=== PATIENT | female | born 1980 | race American Indian/Alaskan Native ===

== ENCOUNTER 2020-01-07 15:40 | Emergency (ER) | payer SELFPAY ==
--- NOTE | 2020-01-07 16:00 | Event Note ---
ED Screening Note Date of service: 01/07/20 Time: 15:58 ED Screening Note: 39 y o femle presents with cc of a lot of calls admits HI with no plan delusional, PMH: Anxiety This initial assessment/diagnostic orders/clinical plan/treatment(s) is/are subject to change based on patients health status, clinical progression and re- assessment by fellow clinical providers in the ED. Further treatment and workup at subsequent clinical providers discretion. Patient/guardian urged not to elope from the ED as their condition may be serious if not clinically assessed and managed. Initial orders include: main side eval labs
[2020-01-07 17:02] LABS: Basophils # (Auto) 0.2 K/mm3 (0.0-0.1); Basophils % (Auto) 0.9 % (0.0-1.8); Eosinophils # (Auto) 0.3 K/mm3 (0.0-0.4); Eosinophils % (Auto) 1.5 % (0.0-4.3); Lymphocytes # (Auto) 3.4 K/mm3 (1.2-5.4); Lymphocytes % (Auto) 20.1 % (13.4-35.0); Mean Corpuscular HGB Conc 30 % (30-34); Monocytes # (Auto) 0.9 K/mm3 (0.0-0.8); Monocytes % (Auto) 5.3 % (0.0-7.3); Platelet Count 425 K/mm3 (140-440); Red Blood Count 4.78 M/mm3 (3.65-5.03); Red Cell Distribution Width 17.9 % (13.2-15.2)
[2020-01-07 17:05] LABS: Hematocrit 32.6 % (30.3-42.9); Hemoglobin 9.7 gm/dl (10.1-14.3); Mean Corpuscular Volume 68 fl (79-97)
[2020-01-07 17:10] LABS: BUN/Creatinine Ratio 12; Blood Urea Nitrogen 7 mg/dL (7-17); Calcium 9.5 mg/dL (8.4-10.2); Hemolysis Index 1
--- NOTE | 2020-01-07 20:25 | Emergency Department Report ---
HPI - General Chief Complaint: Psych Time Seen by Provider: 01/07/20 19:45 - HPI HPI: 39-year-old -Nigerien female presents to the emergency department via EMS for a mental health evaluation. The patient first tells me that she is here because of anxiety that is keeping her from getting any sleep or eating food. She says that she takes alprazolam for her anxiety. When asked how long this has been going on, the patient says "ever since they have been calling me and telling me to come here." I asked who she is referring to and the patient says "Tim Anderson" among others. She says that she sees it "on their receipts, and even sees the numbers on the side of the buses." She denies any visual or auditory hallucinations. She denies any suicidal ideations. Patient denies any psychiatric diagnosed history by saying "I have seen the things that they wrote down on the papers but those are not right." ED Review of Systems ROS: Stated complaint: EVAL Other details as noted in HPI Comment: Unobtainable due to pts medical conditions Physical Exam - Physical Exam Physical Exam: GENERAL: The patient is well-developed well-nourished. HENT: Normocephalic. Atraumatic. Patient has moist mucous membranes. EYES: Extraocular motions are intact. NECK: Supple. Trachea is midline. CHEST/LUNGS: Clear to auscultation. There is no respiratory distress noted. HEART/CARDIOVASCULAR: Regular. There is no tachycardia. ABDOMEN: Abdomen is soft, nontender. Patient has normal bowel sounds. There is no abdominal distention. SKIN: Skin is warm and dry. NEURO: The patient is awake, alert, and cooperative. The patient has no focal neurologic deficits. Normal speech. MUSCULOSKELETAL: There is no tenderness or deformity. There is no limitation range of motion. There is no evidence of acute injury. PSYCH: Patient exhibits delusions. ED Medical Decision Making - Lab Data Result diagrams: 01/07/20 16:39 01/07/20 16:39 - Medical Decision Making This patient presents to the emergency department for a mental health evaluation. At first she starts talking about having anxiety but shortly afterwards and started to exhibit some delusions and/or hallucinations. The patient thinks that there are celebrities that are calling her and telling her that she needs to come to the hospital. She thinks there is some connection between things that she is seen on billboards, the sides of buses and apparently some receipts that are related to these celebrities. The patient also was seen in triage appearing to be hallucinating. The patient denies any suicidal or homicidal ideations to me. However she was seen by the psychiatric porter luggage and did express homicidal ideations and paranoia. For all these reasons the patient has been made a 1013 and we will seek inpatient psychiatric treatment. Her labs have been mostly unremarkable including CBC, metabolic panel, UDS and blood alcohol level. The patient did have a mild leukocytosis of 17,000 but there are no signs or symptoms of infection including the patient is afebrile. Her vital signs been stable throughout her ED course thus far. I consider this patient to be medically cleared for psychiatric placement. - Differential Diagnosis Bipolar disorder, schizophrenia, schizoaffective, substance abuse Critical Care Time: No Critical care attestation.: If time is entered above; I have spent that time in minutes in the direct care of this critically ill patient, excluding procedure time. ED Disposition Clinical Impression: Acute psychosis Disposition: DC/TX-65 PSY HOSP/PSY UNIT Is pt being admited?: No Condition: Stable Time of Disposition: 22:37
[2020-01-07 20:35] LABS: Bilirubin,Urine NEG (Negative); Blood,Urine NEG (Negative); Color,Urine Yellow (Yellow); Mucus,Urine FEW /HPF; Protein,Urine <15 mg/dL mg/dL (Negative)
[2020-01-07 20:42] LABS: Amphetamine Screen,Urine PRESUMPTIVE NEGATIVE; Benzodiazepines Screen,Urine PRESUMPTIVE NEGATIVE; Cannabinoid Screen,Urine PRESUMPTIVE NEGATIVE; Cocaine Screen,Urine PRESUMPTIVE NEGATIVE; Methadone Screen,Urine PRESUMPTIVE NEGATIVE; Opiate Screen,Urine PRESUMPTIVE NEGATIVE
[2020-01-08] MEDS ORDERED: HALOPERIDOL LACTATE 5 MG/1 ML INJ ONE (13:14)
--- NOTE | 2020-01-08 13:14 | Consultation ---
History of Present Illness - Reason for Consult Consult date: 01/08/20 Reason for consult: psychiatric assessment - History of Present Psychiatric Illness Ms. Mejia is a 39-year-old -[place] female, patient was noted in her room sitting on a recliner, the patient appears irritable, she appears her age she is disheveled, poor hygiene. She maintains intermittent eye contact. When the patient was asked her name the patient gave a wrong name, when told what her right name was the patient stated, "I just changed that the other day". When asked why she was here the patient stated, some other members called in yesterday and told them that I was not treated right, crisis came I cursed them out and I came on the back of the van to the hospital". The patient reports that she has a history of anxiety and has been taking Xanax when asked the last time she took Xanax patient said she does not remember. The patient denies ever having any mental health history. The patient denies suicidal ideation, but voiced homicidal ideation with the plan to use antifreeze in anyone's cocktail and kill them. When asked why the patient stated, "people are always messing with me so why not just kill them". The patient denies visual or auditory hallucinations the patient appear apprehensive the patient denies any form of depressive symptoms. She does report that she is eating and sleeping well. The patient is noted with disorganized thought processes and decreased attention span very hyperverbal and irritable PAST PSYCHIATRIC HISTORY: Diagnoses: anxiety Suicide attempts or Self-harm behavior:denies Prior psychiatric hospitalizations: yes Substance Abuse history: denies Previous psychiatric medications tried: xanax Outpatient treatment: can't remember PAST MEDICAL HISTORY: Family Psychiatric History family members SOCIAL HISTORY Marital Status: single Living Arrangements: self Employment Status: unemployed Access to guns/weapons: denies Education: college History of Abuse: yes Legal History: yes ROS: Constitutional: Negative for weight loss ENT: Negative for stridor Respiratory: Negative for cough or hemoptysis All other systems reviewed and are negative MENTAL STATUS General Appearance and Behavior: age appropriate, good eye contact, cooperative with questioning and polite Cooperation: at times Psychomotor Behavior: agitated Mood: "high" Affect and affective range: expansive Thought Process: tangential Thought Content: HI Speech: hyperverbal Intellectual Functioning Average Suicidal Ideation: Denies SI Homicidal Ideation: yes to use anti-freeze to kill people Impulse Control: intact Insight and Judgment: poor Memory: forgetful Attention: Normal Orientation: alert and orientedx 3 RECOMMENDATIONS MEDICATIONS: Start Haldol 5 mg IM every 6 hours as needed agitation Start Ativan 2 mg IM every 4 hours as needed agitation Start olanzapine 2.5 mg daily-psychosis Start trazodone 50 mg nightly for sleep buspar 7.5 mg twice daily anxiety Risks, benefits and alternatives of medications discussed with the patient, questions answered and consent obtained from patient. PSYCHOTHERAPY: Supportive psychotherapy provided DELIRIUM PRECAUTIONS: Please re-orient patient frequently, keep lights on during the day, and minimize benzodiazepines and opiates as these medications could worsen patient's confusion. 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 Will follow until transfer to appropriate facility LEGAL STATUS: 1013 FOLLOW-UP: Will follow Medications and Allergies Allergies Allergy/AdvReac Type Severity Reaction Status Date / Time No Known Allergies Allergy Unverified 01/07/20 16:03 Active Meds: Active Medications Haloperidol Lactate (Haldol) 5 mg IM Q6H PRN PRN Reason: Agitation Lorazepam (Ativan) 2 mg IV Q4H PRN PRN Reason: Agitation Mental Status Exam - Vital signs Last Vital Signs Temp 98.0 F 01/08/20 07:57 Pulse 84 01/08/20 07:57 Resp 18 01/08/20 07:57 BP 147/78 01/08/20 07:57 Pulse Ox 100 01/08/20 07:57 Results Result Diagrams: 01/07/20 16:39 01/07/20 16:39 Abnormal lab results 01/07/20 01/07/20 01/07/20 Range/Units 16:39 16:39 16:39 WBC (4.5-11.0) K/mm3 Hgb (10.1-14.3) gm/dl MCV (79-97) fl MCH (28-32) pg RDW (13.2-15.2) % Good[place] # (0.0-0.8) K/mm3 Baso # (0.0-0.1) K/mm3 Seg Neutrophils % (40.0-70.0) % Seg Neutrophils # (1.8-7.7) K/mm3 Sodium 135 L (137-145) mmol/L Carbon Dioxide 20 L (22-30) mmol/L Creatinine 0.6 L (0.7-1.2) mg/dL Glucose 111 H (65-100) mg/dL Salicylates < 0.3 L (2.8-20.0) mg/dL Acetaminophen < 5.0 L (10.0-30.0) ug/mL 01/07/20 Range/Units 16:39 WBC 17.1 H (4.5-11.0) K/mm3 Hgb 9.7 L (10.1-14.3) gm/dl MCV 68 L (79-97) fl MCH 20 L (28-32) pg RDW 17.9 H (13.2-15.2) % Gooding # 0.9 H (0.0-0.8) K/mm3 Baso # 0.2 H (0.0-0.1) K/mm3 Seg Neutrophils % 72.2 H (40.0-70.0) % Seg Neutrophils # 12.3 H (1.8-7.7) K/mm3 Sodium (137-145) mmol/L Carbon Dioxide (22-30) mmol/L Creatinine (0.7-1.2) mg/dL Glucose (65-100) mg/dL Salicylates (2.8-20.0) mg/dL Acetaminophen (10.0-30.0) ug/mL All other labs normal.
[2020-01-08] MEDS: LORazepam 2 MG/ML VIAL IV PRN (13:49)
[2020-01-08] MEDS: HALOPERIDOL LACTATE 5 MG/1 ML INJ IM PRN (13:50)
[2020-01-08 19:30] LABS: Basophils # (Auto) 0.2 K/mm3 (0.0-0.1); Basophils % (Auto) 1.3 % (0.0-1.8); Eosinophils # (Auto) 0.2 K/mm3 (0.0-0.4); Eosinophils % (Auto) 1.6 % (0.0-4.3); Lymphocytes # (Auto) 3.7 K/mm3 (1.2-5.4); Lymphocytes % (Auto) 26.2 % (13.4-35.0); Mean Corpuscular HGB Conc 29 % (30-34); Monocytes # (Auto) 0.7 K/mm3 (0.0-0.8); Monocytes % (Auto) 4.8 % (0.0-7.3); Platelet Count 374 K/mm3 (140-440); Red Blood Count 4.64 M/mm3 (3.65-5.03); Red Cell Distribution Width 18.5 % (13.2-15.2)
[2020-01-08 19:31] LABS: Hematocrit 31.7 % (30.3-42.9); Hemoglobin 9.3 gm/dl (10.1-14.3); Mean Corpuscular Volume 69 fl (79-97)
[2020-01-08] MEDS: traZODone 50 MG TAB PO SCH (22:22)
[2020-01-08] MEDS: busPIRone 5 MG TAB PO SCH (22:22)
[2020-01-09] MEDS: busPIRone 5 MG TAB PO SCH ×2 (11:29→22:30)
--- NOTE | 2020-01-09 15:53 | Progress Note ---
Subjective - Reason for Consult Consult date: 01/09/20 Reason for consult: Psychiatric assessment - Chief Complaint Chief complaint: Ms. Mejia is seen in her room alert oriented x2 she is able to make her needs known she is dressed appropriately for the occasion she appears her age, she maintains eye contact. 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 The patient denies suicidal ideation but reports that she has a little bit of homicidal ideation for someone in [place] she states, "I need to take care of that business in [place]". The patient denies visual or auditory hallucinations. She reports eating and sleeping well she denies any form of depressive symptoms she states, "they are just oppressing me here". She reports her mood as fine. ROS: Constitutional: Negative for weight loss ENT: Negative for stridor Respiratory: Negative for cough or hemoptysis All other systems reviewed and are negative MENTAL STATUS General Appearance and Behavior: age appropriate, good eye contact, cooperative with questioning and polite Cooperation: calm Psychomotor Behavior: Mood: "fine" Affect and affective range: Labile Thought Process: tangential Thought Content: Speech: HI Intellectual Functioning Average Suicidal Ideation: Denies SI Homicidal Ideation: yes Impulse Control: intact Insight and Judgment: poor Memory: forgetful Attention: Normal Orientation: alert and orientedx 3 RECOMMENDATIONS MEDICATIONS: Continue medication on chart Risks, benefits and alternatives of medications discussed with the patient, questions answered and consent obtained from patient. PSYCHOTHERAPY: Supportive psychotherapy provided DELIRIUM PRECAUTIONS: Please re-orient patient frequently, keep lights on during the day, and minimize benzodiazepines and opiates as these medications could worsen patient's confusion. 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 Will follow until transfer to appropriate facility LEGAL STATUS: 1013 FOLLOW-UP: Will follow Mental Status Exam - Vital signs Last Vital Signs Temp 97.7 F 01/09/20 14:41 Pulse 82 01/09/20 14:41 Resp 20 01/09/20 14:41 BP 146/83 03/12/20 14:41 Pulse Ox 98 01/09/20 14:41
[2020-01-09] MEDS: traZODone 50 MG TAB PO SCH (22:30)
[2020-01-10] MEDS: HALOPERIDOL LACTATE 5 MG/1 ML INJ IM PRN (09:12)
[2020-01-10] MEDS: LORazepam 2 MG/ML VIAL IV PRN (09:13)
[2020-01-10] MEDS: busPIRone 5 MG TAB PO SCH ×2 (11:07→21:44)
[2020-01-10] MEDS: traZODone 50 MG TAB PO SCH (21:44)
[2020-01-11 03:43] LABS: Mean Corpuscular HGB Conc 30 % (30-34); Platelet Count 386 K/mm3 (140-440); Red Blood Count 4.48 M/mm3 (3.65-5.03); Red Cell Distribution Width 18.4 % (13.2-15.2)
[2020-01-11 03:47] LABS: Hemoglobin 9.1 gm/dl (10.1-14.3); Mean Corpuscular Volume 69 fl (79-97)
[2020-01-11] MEDS: busPIRone 5 MG TAB PO SCH ×2 (10:12→22:32)
[2020-01-11] MEDS: LORazepam 2 MG/ML VIAL IV PRN (11:45)
[2020-01-11] MEDS: HALOPERIDOL LACTATE 5 MG/1 ML INJ IM PRN (11:45)
--- NOTE | 2020-01-11 12:56 | Progress Note ---
Subjective Date of service: 01/11/20 Principal diagnosis: Psychiatric assessment Subjective Comment: Ms. Mejia is seen in her room alert oriented x2 she is able to make her needs known she is dressed appropriately for the occasion she appears her age, she maintains eye contact.when asked about suicidal ideation the patient stated, "my time has appear I have to go now I have to search I need to go now". When asked about homicidal ideation the patient stated no I do not want to hurt anyone". The patient denies visual or auditory hallucinations, but was seen talking and laughing to her self. When asked about depression, the patient stated, "I am just been oppressed here" the patient then stated, "did you see Rachel she is here you need to send her home she has been here all morning". When asked who was Rachel the patient stated, who acts as if you did not see her". The patient stated I need a lie detector test and when I pass I will nette you guys. ROS: Constitutional: Negative for weight loss ENT: Negative for stridor Respiratory: Negative for cough or hemoptysis All other systems reviewed and are negative MENTAL STATUS General Appearance and Behavior: age appropriate, good eye contact, cooperative with questioning and polite Cooperation: calm Psychomotor Behavior: Mood: "fine" Affect and affective range: Labile Thought Process: tangential Thought Content: delusional Speech: normal Intellectual Functioning Average Suicidal Ideation: Denies SI Homicidal Ideation: denies Impulse Control: intact Insight and Judgment: poor Memory: forgetful Attention: Normal Orientation: alert and orientedx 3 RECOMMENDATIONS MEDICATIONS: Continue medication on chart Risks, benefits and alternatives of medications discussed with the patient, questions answered and consent obtained from patient. PSYCHOTHERAPY: Supportive psychotherapy provided DELIRIUM PRECAUTIONS: Please re-orient patient frequently, keep lights on during the day, and minimize benzodiazepines and opiates as these medications could worsen patient's confusion. 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 Will follow until transfer to appropriate facility LEGAL STATUS: 1013 FOLLOW-UP: Will follow Medications and Allergies Allergies Allergy/AdvReac Type Severity Reaction Status Date / Time No Known Allergies Allergy Unverified 01/07/20 16:03 Home Medications Medication Instructions Recorded Confirmed Last Taken Type ALPRAZolam [Xanax TAB] 0.5 mg PO BID 01/10/20 01/10/20 Unknown History Active Meds: Active Medications Buspirone HCl (Buspar) 7.5 mg PO BID [facility] Last Admin: 01/11/20 10:12 Dose: Not Given Documented by: Haloperidol Lactate (Haldol) 5 mg IM Q6H PRN PRN Reason: Agitation Last Admin: 01/11/20 11:45 Dose: 5 mg Documented by: Lorazepam (Ativan) 2 mg IV Q4H PRN PRN Reason: Agitation Last Admin: 01/11/20 11:45 Dose: 2 mg Documented by: Olanzapine (Zyprexa) 2.5 mg PO QDAY [facility] Last Admin: 01/11/20 10:12 Dose: Not Given Documented by: Trazodone HCl (Desyrel) 50 mg PO QHS [facility] Last Admin: 01/10/20 21:44 Dose: Not Given Documented by: Results - Results Labs/Vitals: Laboratory Last Values WBC 12.1 K/mm3 (4.5-11.0) H 01/11/20 03:06 RBC 4.48 M/mm3 (3.65-5.03) 01/11/20 03:06 Hgb 9.1 gm/dl (10.1-14.3) L 01/11/20 03:06 Hct 31.0 % (30.3-42.9) 01/11/20 03:06 MCV 69 fl (79-97) L 01/11/20 03:06 MCH 20 pg (28-32) L 01/11/20 03:06 MCHC 30 % (30-34) 01/11/20 03:06 RDW 18.4 % (13.2-15.2) H 01/11/20 03:06 Plt Count 386 K/mm3 (140-440) 01/11/20 03:06 Lymph % (Auto) 26.2 % (13.4-35.0) 01/08/20 19:10 Lucas % (Auto) 4.8 % (0.0-7.3) 01/08/20 19:10 Eos % (Auto) 1.6 % (0.0-4.3) 01/08/20 19:10 Baso % (Auto) 1.3 % (0.0-1.8) 01/08/20 19:10 Lymph # 3.7 K/mm3 (1.2-5.4) 01/08/20 19:10 Lucas # 0.7 K/mm3 (0.0-0.8) 01/08/20 19:10 Eos # 0.2 K/mm3 (0.0-0.4) 01/08/20 19:10 Baso # 0.2 K/mm3 (0.0-0.1) H 01/08/20 19:10 Seg Neutrophils % 66.1 % (40.0-70.0) 01/08/20 19:10 Seg Neutrophils # 9.4 K/mm3 (1.8-7.7) H 01/08/20 19:10 Sodium 135 mmol/L (137-145) L 01/07/20 16:39 Potassium 4.5 mmol/L (3.6-5.0) 01/11/20 03:06 Chloride 100.6 mmol/L (98-107) 01/07/20 16:39 Carbon Dioxide 20 mmol/L (22-30) L 01/07/20 16:39 Anion Gap 18 mmol/L 01/07/20 16:39 BUN 7 mg/dL (7-17) 01/07/20 16:39 Creatinine 0.6 mg/dL (0.7-1.2) L 01/07/20 16:39 Estimated GFR > 60 ml/min 01/07/20 16:39 BUN/Creatinine Ratio 12 % 01/07/20 16:39 Glucose 111 mg/dL (65-100) H 01/07/20 16:39 Calcium 9.5 mg/dL (8.4-10.2) 01/07/20 16:39 Urine Color Yellow (Yellow) 01/07/20 20:00 Urine Turbidity Clear (Clear) 01/07/20 20:00 Urine pH 6.0 (5.0-7.0) 01/07/20 20:00 Ur Specific [place] 1.019 (1.003-1.030) 01/07/20 20:00 Urine Protein <15 mg/dl mg/dL (Negative) 01/07/20 20:00 Urine Glucose (UA) Neg mg/dL (Negative) 01/07/20 20:00 Urine Ketones Neg mg/dL (Negative) 01/07/20 20:00 Urine Blood Neg (Negative) 01/07/20 20:00 Urine Nitrite Neg (Negative) 01/07/20 20:00 Urine Bilirubin Neg (Negative) 01/07/20 20:00 Urine Urobilinogen 2.0 mg/dL (<2.0) 01/07/20 20:00 Ur Leukocyte Esterase Neg (Negative) 01/07/20 20:00 Urine WBC (Auto) 1.0 /HPF (0.0-6.0) 01/07/20 20:00 Urine RBC (Auto) 3.0 /HPF (0.0-6.0) 01/07/20 20:00 U Epithel Cells (Auto) 5.0 /HPF (0-13.0) 01/07/20 20:00 Urine Mucus Few /HPF 01/07/20 20:00 Salicylates < 0.3 mg/dL (2.8-20.0) L 01/07/20 16:39 Urine Opiates Screen Presumptive negative 01/07/20 20:00 Urine Methadone Screen Presumptive negative 01/07/20 20:00 Acetaminophen < 5.0 ug/mL (10.0-30.0) L 01/07/20 16:39 Ur Barbiturates Screen Presumptive negative 01/07/20 20:00 Ur Phencyclidine Scrn Presumptive negative 01/07/20 20:00 Ur Amphetamines Screen Presumptive negative 01/07/20 20:00 U Benzodiazepines Scrn Presumptive negative 01/07/20 20:00 Urine Cocaine Screen Presumptive negative 01/07/20 20:00 U Marijuana (THC) Screen Presumptive negative 01/07/20 20:00 Drugs of Abuse Note Disclamer 01/07/20 20:00 Plasma/Serum Alcohol < 0.01 % (0-0.07) 01/07/20 16:39 Last Vital Signs Temp 98.4 F 01/11/20 08:32 Pulse 72 01/11/20 08:32 Resp 18 01/11/20 08:32 BP 141/80 01/11/20 08:32 Pulse Ox 100 01/11/20 08:32
[2020-01-11] MEDS: traZODone 50 MG TAB PO SCH (22:32)
[2020-01-12] MEDS ORDERED: BENZTROPINE 2 MG/2 ML INJ IM PRN (09:52)
--- NOTE | 2020-01-12 10:00 | Progress Note ---
Subjective - Reason for Consult Consult date: 01/12/20 Reason for consult: Psychiatric assessment - Chief Complaint Chief complaint: Ms. Mejia is seen in her room alert oriented x2 she is able to make her needs known she is dressed appropriately for the occasion she appears her age, she maintains intermittent eye contact. The patient denies suicidal and homicidal ideations. The patient denies any visual or auditory hallucination the patient was however noted talking and laughing to herself, the patient is noted with disorganized thinking patient thoughts are disjointed and circumstantial. When asked about medication the patient stated, "they are not my medication I am not taking those your witchcraft doctor and I do not need any of your witchcraft medications". The patient reports that she is sleeping well and eating well. When asked about depression patient stated I am not depressed. The patient remains disorganized and delusional, non-medication compliant. ROS: Constitutional: Negative for weight loss ENT: Negative for stridor Respiratory: Negative for cough or hemoptysis All other systems reviewed and are negative MENTAL STATUS General Appearance and Behavior: age appropriate, good eye contact, Cooperation: uncooperative Mood: "fine" Affect and affective range: Labile Thought Process: circumstantial Thought Content: Speech: pressured Intellectual Functioning Average Suicidal Ideation: Denies SI Homicidal Ideation: denies Impulse Control: intact Insight and Judgment: poor Attention: Normal Orientation: alert and orientedx 3 RECOMMENDATIONS MEDICATIONS: Give Cogentin 1 mg IM as needed with Haldol to prevent EPS Give Benadryl 25 mg p.o. IF patient refused IM Cogentin Risks, benefits and alternatives of medications discussed with the patient, questions answered and consent obtained from patient. PSYCHOTHERAPY: Supportive psychotherapy provided DELIRIUM PRECAUTIONS: Please re-orient patient frequently, keep lights on during the day, and minimize benzodiazepines and opiates as these medications could worsen patient's confusion. 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 Will follow until transfer to appropriate facility LEGAL STATUS: 1013 FOLLOW-UP: Will follow Mental Status Exam - Vital signs Last Vital Signs Temp 97.9 F 01/12/20 08:18 Pulse 83 01/12/20 08:18 Resp 16 01/12/20 08:18 BP 137/82 01/12/20 08:18 Pulse Ox 100 01/12/20 08:18
[2020-01-12] MEDS: busPIRone 5 MG TAB PO SCH (11:01)
[2020-01-12] MEDS: HALOPERIDOL LACTATE 5 MG/1 ML INJ IM PRN (11:18)
[2020-01-12] MEDS: LORazepam 2 MG/ML VIAL IV PRN (11:19)
[2020-01-12 15:58] VITALS: BP 136/76
[2020-01-12] MEDS ORDERED: diphenhydrAMINE 25 MG CAP PO PRN (22:00)
== END 2020-01-12 18:46 ==
LOC: EEVIPCON 15:40 → ED 15:40
DX: F23 Brief psychotic disorder (principal); F41.9 Anxiety disorder, unspecified
CPT/HCPCS: 36415; 80048; 80307; 81001; 84132; 85025; 85027; 96372; 96374; 99285; J0515; J1630; J2060; 80320; G0480